=== PATIENT | male | born 1970 | race Caucasian/White ===

== ENCOUNTER 2022-02-08 03:00 | Observation (INO) | payer OTHER, SELFPAY ==
[2022-02-08] VITALS (17 sets, daily range): BP systolic 104–156; BP diastolic 65–90; PULSE 54–77; RESP 16–22; TEMP 36.4–36.8; O2SAT 94–100; BMI 33.0; BMI 33.1
--- NOTE | 2022-02-08 | EST_ITS ---
Patient Info Name: Jesse Lawrence Age: 52 years : 1970 Gender: Male Ht: 68 in Wt: 218 lbs BSA: 2.21 m2 HR: 50 bpm BP: 118 / 73 mmHg Heart Rhythm: Sinus Rhythm Exam Date: 02/08/2022 11:48 AM Exam Location: [facility] Patient Status: Inpatient Admit Date: 02/08/2022 Staff Ordering Physician: Ruddy White DO Attending Provider: oJsefina Bob DO Exercise Technologist: Karuna Winslow CT Exercise Physician: Ruddy White DO Exam Type: CA stress test treadmill w NM Study Info Indications R07.9 - Chest pain, unspecified A nuclear stress test was performed. Summary 1. 1. Negative Luis Eduardo exercise stress test for ischemic ST changes by ECG criteria. However, patient achieved only 72% MPHR for age group which reduces sensitivity of the test. Patient did receive beta [place] this morning of the test. 2. 2. Good functional capacity, achieving 11 METs of workload. 3. 3. Appropriate HR response to exercise. 4. 4. Appropriate HR recovery at 1 minute post exercise. 5. 5. Nuclear scan to follow and will be reported separately. Please correlate with it. 6. 6. Patient informed of the above results. Protocol: Luis Eduardo Stress ECG Details Stage: REST Duration (min): 1 min : 0 sec Speed (mph): 0.0 Grade (%): 0 HR (bpm): 52 SBP (mmHg): 118 DBP (mmHg): 73 METS: --- Stage: REST Duration (min): 6 min : 12 sec Speed (mph): 0.0 Grade (%): 0 HR (bpm): 59 SBP (mmHg): 118 DBP (mmHg): 73 METS: --- Stage: STAGE 1 Duration (min): 1 min : 0 sec Speed (mph): 1.7 Grade (%): 10 HR (bpm): 82 SBP (mmHg): 118 DBP (mmHg): 73 METS: --- Stage: STAGE 1 Duration (min): 2 min : 0 sec Speed (mph): 1.7 Grade (%): 10 HR (bpm): 83 SBP (mmHg): 118 DBP (mmHg): 73 METS: --- Stage: STAGE 1 Duration (min): 3 min : 0 sec Speed (mph): 1.7 Grade (%): 10 HR (bpm): 82 SBP (mmHg): 108 DBP (mmHg): 81 METS: --- Stage: STAGE 2 Duration (min): 1 min : 0 sec Speed (mph): 2.5 Grade (%): 12 HR (bpm): 91 SBP (mmHg): 108 DBP (mmHg): 81 METS: --- Stage: STAGE 2 Duration (min): 2 min : 0 sec Speed (mph): 2.5 Grade (%): 12 HR (bpm): 98 SBP (mmHg): 144 DBP (mmHg): 76 METS: --- Stage: STAGE 2 Duration (min): 3 min : 0 sec Speed (mph): 2.5 Grade (%): 12 HR (bpm): 97 SBP (mmHg): 144 DBP (mmHg): 76 METS: --- Stage: STAGE 3 Duration (min): 1 min : 0 sec Speed (mph): 3.4 Grade (%): 14 HR (bpm): 109 SBP (mmHg): 138 DBP (mmHg): 77 METS: --- Stage: STAGE 3 Duration (min): 2 min : 0 sec Speed (mph): 3.4 Grade (%): 14 HR (bpm): 116 SBP (mmHg): 138 DBP (mmHg): 77 METS: --- Stage: STAGE 3 Duration (min): 3 min : 0 sec Speed (mph): 3.4 Grade (%): 14 HR (bpm): 121 SBP (mmHg): 158 DBP (mmHg): 88 METS: --- Stage: STAGE 4
--- NOTE | 2022-02-08 | ECHO_ITS ---
Patient Info Name: Jesse Lawrence Age: 52 years : 1970 Gender: Male Ht: 68 in Wt: 218 lbs BSA: 2.21 m2 HR: 61 bpm BP: 127 / 79 mmHg Heart Rhythm: Sinus Arrhythmia Technical Quality: Fair Exam Date: 02/08/2022 1:18 PM Exam Location: [facility] Patient Status: Inpatient Admit Date: 02/08/2022 Staff Ordering Physician: Ruddy White DO Primary Therapist: Brooklyn De Anda RDCS Attending Provider: Josefina Bob DO Referring Physician: Christopher LORENZ; Exam Type: CA echo doppler color flow Study Info Indications - CP, CAD Complete two-dimensional, color flow and Doppler transthoracic echocardiogram is performed. Summary 1. Complete two-dimensional, color flow and Doppler transthoracic echocardiogram is performed. 2. Left ventricular chamber dimension is normal. 3. Left ventricular systolic function is normal, estimated at 60-65%. 4. The left ventricular diastolic function is grade II diastolic dysfunction. 5. E/e' 9 is minimally elevated. 6. No pulmonary hypertension, estimated pulmonary arterial systolic pressure is 29 mmHg. 7. There is trace pulmonic regurgitation. Left Ventricle E/e' 9 is minimally elevated. Left ventricular chamber dimension is normal. Left ventricular systolic function is normal, estimated at 60-65%. The left ventricular diastolic function is grade II diastolic dysfunction. Right Ventricle Right ventricular systolic function is normal and with normal TAPSE 2.1 cm. Right ventricular chamber dimension is normal. Left Atria Left atrial chamber dimension is normal. Right Atria Right atrial chamber dimension is normal. Aortic Valve The aortic valve is trileaflet. There is no aortic valve stenosis. There is no aortic valve regurgitation. Pulmonic Valve There is trace pulmonic regurgitation. Mitral Valve There is no mitral valve stenosis. There is no mitral valve regurgitation. Tricuspid Valve There is no tricuspid valve regurgitation. No pulmonary hypertension, estimated pulmonary arterial systolic pressure is 29 mmHg. Pericardium/Pleural There is no pericardial effusion. Inferior Vena Cava Normal inferior vena cava with >50% collapse upon inspiration consistent with normal right atrial pressure, 5 mmHg. Aorta The aortic root size at the sinus of Valsalva is normal. Left Ventricular Outflow Tract Name Value Normal LVOT 2D LVOT Diameter 2.0 cm LVOT Doppler LVOT Peak Gradient 6 mmHg LVOT Mean Gradient 3 mmHg LVOT VTI 26 cm LVOT VTI/AV VTI Ratio 0.9 LVOT Stroke Volume 85 ml LVOT CO 4.6 l/min LVOT CI 2.1 l/min/m2 Pulmonic Valve Name Value Normal RVOT Doppler RVOT Peak
--- NOTE | ~2022-02-08 | XR_ITS ---
EXAMINATION: XR chest 2V 02/08/2022 03:43 INDICATION: Chest pain PROCEDURE: 2 view chest COMPARISON: No prior studies for comparison. FINDINGS: The lungs are clear. The cardiomediastinal silhouette is within normal limits. There are no pleural effusions. There is no pneumothorax suspected. IMPRESSION: 1: NO ACUTE CARDIOPULMONARY DISEASE. Reviewed, dictated and finalized at location A.
--- NOTE | ~2022-02-08 | NM_ITS ---
EXAMINATION: NM stress w perf spect multi DATE: 02/08/2022 13:17 INDICATION: Chest pain TECHNIQUE: Rest images were obtained following intravenous administration of 9.6 mCi Tc99m tetrofosmi n ([email or web address]). The patient performed an exercise activity. At peak exercise, 31.7 mCi Tc99m tetrofosmin ([employer]) was administered intravenously, and stress images were obtained. Data was reconstructed in to short axis and horizontal and vertical long axis SPECT images. Gated SPECT images were also obtain ed. COMPARISON: None. FINDINGS: There is normal left ventricular perfusion without definite evidence of reversible or fixed perfusion abnormality to suggest ischemia or infarction. There is normal left ventricular chamber size, wall motion and ejection fraction. Left ventricular ejection fraction measures 65%. IMPRESSION: 1. Normal myocardial perfusion at rest and during stress. 2. Left ventricular ejection fraction measuring 65%. Reviewed, dictated and finalized at location B.
--- NOTE | 2022-02-08 03:03 | ECG_ITS ---
Measurements Intervals [place] Rate: 63 P: 21 [place]: 183 QRS: -10 QRSD: 86 T: 10 QT: 392 QTc: 404 Interpretive Statements SINUS RHYTHM BASELINE ARTIFACT- I, II, AVR, AVL, AVF, V1 NORMAL ECG Electronically Signed On 02-08-2022 6:38:11 CDT by Ruddy White D.O.
--- NOTE | 2022-02-08 03:18 | ED.CHESTPAIN ---
HPI - Chest Pain General Chief Complaint: Chest Pain Stated Complaint: CHEST PAIN Time Seen by Provider: 02/08/22 03:11 Source: patient History of Present Illness HPI narrative: Patient presents with chest pain. Reports his chest pain has been present for approximately 1 hour prior to ER arrival. Ports history of coronary artery disease multiple stents his episodes feel like his prior MIs. 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 Denies any lightheadedness or dizziness with some mild shortness of breath denies any recent fevers, cough, congestion denies any urinary symptoms. Related Data Home Medications Medication Instructions Recorded Confirmed aspirin 81 mg tablet 81 mg PO DAILY 02/08/22 atorvastatin 40 mg tablet tablet 02/08/22 clopidogrel 75 mg tablet tablet 02/08/22 02/08/22 colchicine 0.6 mg capsule mg 02/08/22 (Mitigare) lisinopril 10 mg tablet 10 mg PO DAILY 02/08/22 metoprolol tartrate 25 mg tablet 25 mg PO BID 02/08/22 Allergies Allergy/AdvReac Type Severity Reaction Status Date / Time No Known Allergies Allergy Verified 02/08/22 03:19 Review of Systems Review of Systems: CONSTITUTIONAL: Denies fever, chills, or sweats. EYES: Denies visual changes, redness, or discharge. ENT: Denies rhinorrhea, congestion, sore throat, or otalgia. CARDIOVASCULAR: Denies palpitations, or edema. RESPIRATORY: Denies cough GASTROINTESTINAL: Denies abdominal pain, nausea, vomiting, or diarrhea. GENITOURINARY: Denies dysuria or hematuria. SKIN: Denies rash or itching. MUSCULOSKELETAL: Denies back pain, joint pain, or myalgia. NEUROLOGIC: Denies headache, numbness, dizziness, or weakness. PSYCHIATRIC: Denies anxiety or depression. All systems reviewed & are unremarkable except as noted in HPI and below Exam Narrative: GENERAL: Well-appearing, well-nourished, and in no acute distress. HEAD: Normocephalic, atraumatic. EYES: PERRLA and EOMI. ENT: Nares clear, no rhinorrhea or epistaxis. Mucous membranes moist. NECK: Supple. No masses. No JVD CHEST: Clear to auscultation. No respiratory distress. No wheezes rales or rhonchi HEART: Regular rate and rhythm. No murmur heard. Normal peripheral pulses. ABDOMEN: Soft, nontender, nondistended EXTREMITIES: Normal range of motion. No edema. SKIN: Warm, dry, no rash. NEURO: No focal deficits. Alert and oriented x3. PSYCH: Normal mood and affect. Course Reevaluation(s) Reevaluation #1: Patient reports nitro initially helped but his pain has returned. Given his history of multiple stents this episodes feels like his prior MIs patient benefit from further inpatient evaluation. Patient is comfortable inpatient plan. Date: 02/08/22 Time: 05:07 Consultations Consultation #1: Case discussed with hospitalist team who will admit for further management. Cardiology consult placed Date: 02/08/22 Time: 05:42 Vital Signs Vital signs: Vital Signs Temperature 36.7 C 02/08/22 03:06 Pulse Rate 65 02/08/22 03:06 Respiratory Rate 20 02/08/22 03:06 Blood Pressure 156/90 H 02/08/22 03:06 Pulse Oximetry 97 02/08/22 03:06 Oxygen Delivery Room Air 02/08/22 03:06 Temperature 36.7 C 02/08/22 03:06 Pulse Rate 60 02/08/22 06:18 Respiratory Rate 17 02/08/22 06:18 Blood Pressure 104/74 02/08/22 06:18 Pulse Oximetry 96 02/08/22 06:18 Oxygen Delivery Room Air 02/08/22 03:13 MDM - Chest Pain MDM Narrative Medical decision making narrative: Patient presents with chest pressure feels like his prior MIs. Patient overall looks well vital signs are reassuring labs and imaging obtained labs were reassuring initial troponin was negative EKG was nonischemic. Patient was treated with nitro with improvement in his pain. Given similarity to his prior MIs patient will be admitted for further management and cardiology evaluation. Patient is comfortab
[2022-02-08] MEDS: ASPIRIN 81 MG CHEWABLE TABLET 324 MG PO (03:24)
[2022-02-08] MEDS: NITROGLYCERIN OINTMENT 1 INCH DOSE TRANSDERM (03:25)
[2022-02-08 03:29] LABS: Basophils Absolute Auto 0.1 K/mm3 (0.0-0.1); Basophils Percent Auto 1.1 % (0.2-1.2); Eosinophils Absolute Auto 0.5 K/mm3 (0-0.3); Eosinophils Percent Auto 5.5 % (0-4.4); Hematocrit 44.9 % (42.0-52.0); Hemoglobin 15.3 g/dL (14.0-18.0); Immature Granulocyte Absolute 0.04 K/mm3 (0.00-0.031); Immature Granulocyte Percent A 0.5 % (0-0.5); Lymphocytes Absolute Auto 2.66 K/mm3 (0.9-3.2); Lymphocytes Percent Auto 30.3 % (18.3-44.2); Mean Corpuscular HGB Conc 34.1 g/dl (32-36); Mean Corpuscular Hemoglobin 30.1 pg (26-34); Mean Corpuscular Volume 88.4 fl (80-100); Mean Platelet Volume 10.3 fl (7.4-10.4); Monocytes Absolute Auto 0.9 K/mm3 (0.1-0.6); Monocytes Percent Auto 10.7 % (2.6-8.5); Neutrophils Absolute Auto 4.6 K/mm3 (1.3-6.7); Neutrophils Percent Auto 51.9 % (45.5-73.1); Platelet Count Result 246 k/mm3 (150-375); Red Blood Count 5.08 M/mm3 (4.6-6.20); Red Cell Distribution Width 13.2 % (11.5-14.5); White Blood Count 8.8 K/mm3 (4.5-10.0)
[2022-02-08 03:39] LABS: Alanine Aminotransferase 32 U/L (6-50); Albumin Level 4.4 g/dL (3.5-5.1); Alkaline Phosphatase 85 U/L (38-126); Anion Gap 7 mmol/L (8-16); Aspartate Amino Transferase 40 U/L (17-59); Bilirubin,Total 0.5 mg/dL (0.2-1.3); Blood Urea Nitrogen 12 mg/dL (9-20); Calcium 8.7 mg/dL (8.4-10.2); Carbon Dioxide 24 mmol/L (22-30); Chloride 106 mmol/L (98-107); Estimated CRCL calculation 71 ml/min; Estimated Glomerular Filt Rate > 60; Glucose 113 mg/dL (65-110); Lipase 120 U/L (23-300); Potassium 3.7 mmol/L (3.4-5.0); Sodium 137 mmol/L (137-145)
[2022-02-08 03:41] LABS: Partial Thromboplastin Time 27.9 SECONDS (22.3-36.8)
[2022-02-08 03:51] LABS: Troponin I < 0.012 ng/mL (0.000-0.034)
[2022-02-08] MEDS: NITROGLYCERIN SL 0.4 MG TABLET SUBLINGUAL (05:14)
--- NOTE | 2022-02-08 05:14 | PC.NURSE ---
Nitro patch removed from right upper chest at this time. 1st dose SL nitroglycerin given, pt rates chest pressure 5/10.
--- NOTE | 2022-02-08 05:20 | PC.NURSE ---
2nd dose SL nitro given at this time. Pt rates chest pressure 4/10. BP 117/75.
--- NOTE | 2022-02-08 05:26 | PC.NURSE ---
3rd dose SL nitro given at this time. Pt rates chest pressure 2/10. BP 111/72.
--- NOTE | 2022-02-08 05:34 | ECG_ITS ---
Measurements Intervals [place] Rate: 59 P: 12 [place]: 178 QRS: -5 QRSD: 98 T: 13 QT: 416 QTc: 413 Interpretive Statements SINUS BRADYCARDIA WITH SINUS ARRHYTHMIA NONSPECIFIC T-WAVE ABNORMALITY- INFERIOR LEADS BASELINE ARTIFACT- I, III, AVL BORDERLINE ECG Electronically Signed On 02-08-2022 6:38:33 CDT by Ruddy White D.O.
[2022-02-08 06:51] LABS: Troponin I < 0.012 ng/mL (0.000-0.034)
--- NOTE | 2022-02-08 07:19 | ADMGEN ---
This patient, Jesse Lawrence, was admitted to IMU Room 202-01 on 02/08/22 at 0645. Patient/family oriented to hospital policies and general routines including ID bracelet, bed and alarms, visiting hours, pain management, procedures, bathroom and other care routines, personal items, smoking policy, room service/diet, and visiting hours. Information on how to activate the Rapid Response Team has been discussed. Patient/Family are encouraged to report perceived risks to care and to ask questions if they do not understand what they are told or what they should do.
--- NOTE | 2022-02-08 08:36 | PM.IMHP ---
H&P: HPI History of Present Illness Date/Time: 02/08/22 08:36 52M with a past medical history of CAD s/p stent x2 on clopidogrel, hypertension, HLD who presented to the ED with chest pain. Patient says the chest pain started around 0100 while he was driving. Describes it as chest pressure ebony and tightness at the center of the chest that radiates outward with associated tightness in the left neck. Patient says he went to the emergency room for a similar pain three years ago and had his first stent placed. Patient also reports feeling palpitations with associated feeling short of breath. Denies nausea, vomiting, headache, vision changes, cough, sore throat, dysuria, hesitancy, lightheadedness. Has some myalgias from working out. Says he gets leg swelling during long drives, but that it resolves after sleeping overnight. More recent stent was placed about 2 years ago. Job Foreman is Kwasi Sage MD in [place], [place] ([facility]). 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 Says his son who is only 20, has significantly elevated blood pressure. Says father from [place] at 58 and all of his uncles have from cardiac issues. In ED, troponin negative, CXR negative. Labs are within range. Cardiology consulted. Chief Complaint: Chest Pain PMFSH Past Medical History Medical History (Updated 02/08/22 @ 12:37 by Connie Taylor MD) CAD (coronary artery disease) Dyslipidemia Hypertension Family History Family History Father Acute myocardial infarction Congestive heart failure Hypertension Heart disease Sibling Acute myocardial infarction Asthma Crohn's disease Mother Diabetes mellitus Hypertension Heart disease Social History Social History Smoking status: Never smoker Second hand tobacco smoke exposure: Yes Alcohol intake: never Substance use: never Substance use type: does not use Occupation/Education: occupation 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 Spiritual care concerns: No Meds Home Medications and Allergies Home Medications Medication Instructions Recorded Confirmed Type aspirin 81 mg tablet 162 mg PO HS 02/08/22 02/08/22 History atorvastatin 40 mg tablet 40 tablet PO HS 02/08/22 02/08/22 History clopidogrel 75 mg tablet 75 tablet PO DAILY 02/08/22 02/08/22 History lisinopril 10 mg tablet 10 mg PO DAILY 02/08/22 02/08/22 History metoprolol tartrate 25 mg tablet 12.5 mg PO Q12H 02/08/22 02/08/22 History Allergies Allergy/AdvReac Type Severity Reaction Status Date / Time No Known Allergies Allergy Verified 02/08/22 03:19 Vital Signs Vital Signs - 24 hr 02/08/22 03:06 02/08/22 03:13 02/08/22 03:46 Temperature 98.0 F Pulse Rate 65 58 L Respiratory Rate 20 21 H Blood Pressure 156/90 H 138/84 Pulse Oximetry 97 96 Oxygen Delivery Room Air Room Air 02/08/22 04:38 02/08/22 05:13 02/08/22 05:19 Temperature Pulse Rate 65 59 L 70 Respiratory Rate 22 H 19 19 Blood Pressure 124/81 137/79 117/75 Pulse Oximetry 96 95 96 Oxygen Delivery 02/08/22 05:25 02/08/22 05:31 02/08/22 06:18 Temperature Pulse Rate 71 66 60 Respiratory Rate 22 H 19 17 Blood Pressure 111/72 114/65 104/74 Pulse Oximetry 94 96 Oxygen Delivery 02/08/22 06:48 02/08/22 08:00 Temperature 97.5 F L 97.6 F Pulse Rate 61 58 L Respiratory Rate 20 19 Blood Pressure 130/80 127/79 Pulse Oximetry 100 98 Oxygen Delivery Exam Narrative: GENERAL: NAD, cooperative HEENT: Normocephalic, atraumatic, anicteric, nares clear, oropharynx moist and clear, dentition normal NECK: No bruits bilaterally, no JVD, no thyromegaly, no lymphadenopathy CV: Normal S1, S2, RRR, No MRG RESP: CTAB, Normal work of
--- NOTE | 2022-02-08 08:37 | PM.CNCAR ---
Assessment and Plan Assessment and plan (1) Chest pain: Qualifiers: Chest pain type: unspecified Qualified Code(s): R07.9 - Chest pain, unspecified Code(s): R07.9 - Chest pain, unspecified Status: Acute Assessment and Plan: AR r/o by serial troponin and EKG. He has a history of CAD and AR and had a stent to LAD in 2008 in [place], then a 2nd stent in [place] on 2019 in [place]. Obtain treadmill nuclear stress test and echo. (2) CAD (coronary artery disease): Code(s): I25.10 - Atherosclerotic heart disease of [place] coronary artery without angina pectoris Status: Acute (3) Hypertension: Code(s): I10 - Essential (primary) hypertension Status: Acute Assessment and Plan: Stable. Advise to maintain a low sodium diet. (4) Dyslipidemia: Code(s): E78.5 - Hyperlipidemia, unspecified Status: Acute Assessment and Plan: On Atorvastatin. History of Present Illness History of Present Illness Consult date/time: 02/08/22 08:37 52 yr old man presents to ER with cp. He has a history of CAD and AR and had a stent to LAD in 2008 in [place], then a 2nd stent in [place] on 2019, dyslipidemia, hypertension, family history of CAD. 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 He came to our ER and got admitted. He was given 3 NTG and they did relieve some of his pain. He is able to walk 20 minutes at 2.5 mph on a program on treadmill without chest pain. Denies orthopnea, PND, edema, dizziness, palpitations. Consult reason: chest pain Reason For Visit: CHEST PAIN Review of Systems Review of Systems: All systems reviewed & are unremarkable except as noted in HPI and below Constitutional: Constitutional: Reports as per HPI, Denies chills and Denies fever(s) Cardiovascular: Cardiovascular: Reports as per HPI, Reports chest pain, Denies irregular heart rhythm, Denies leg edema and Denies lightheadedness Respiratory: Respiratory: Reports as per HPI and Reports dyspnea Gastrointestinal: Gastrointestinal: Reports as per HPI and Denies abdominal pain Genitourinary: Genitourinary: Reports as per HPI and Denies dysuria Musculoskeletal: Musculoskeletal: Reports as per HPI Neurologic: Reports as per HPI, Denies dizziness and Denies syncope [facility] Family History Family History (Updated 02/08/22 @ 07:38 by Aure Martinez, RN) Father Acute myocardial infarction Congestive heart failure Hypertension Sibling Acute myocardial infarction Asthma Crohn's disease Mother Diabetes mellitus Hypertension Social History Social History Smoking status: Never smoker Second hand tobacco smoke exposure: Yes Alcohol intake: never Substance use: never Substance use type: does not use Spiritual care concerns: No Meds Home Medications and Allergies Home Medications Medication Instructions Recorded Confirmed Type aspirin 81 mg tablet 162 mg PO HS 02/08/22 02/08/22 History atorvastatin 40 mg tablet 40 tablet PO HS 02/08/22 02/08/22 History clopidogrel 75 mg tablet 75 tablet PO DAILY 02/08/22 02/08/22 History lisinopril 10 mg tablet 10 mg PO DAILY 02/08/22 02/08/22 History metoprolol tartrate 25 mg tablet 12.5 mg PO Q12H 02/08/22 02/08/22 History Allergies Allergy/AdvReac Type Severity Reaction Status Date / Time No Known Allergies Allergy Verified 02/08/22 03:19 Vital Signs Vital Signs - 24 hr 02/08/22 03:06 02/08/22 03:13 02/08/22 03:46 Temperature 98.0 F Pulse Rate 65 58 L Respiratory Rate 20 21 H Blood Pressure 156/90 H 138/84 Pulse Oximetry 97 96 Oxygen Delivery Room Air Room Air 02/08/22 04:38 02/08/22 05:13 02/08/22 05:19 Temperature Pulse Ra
[2022-02-08 09:24] LABS: Troponin I < 0.012 ng/mL (0.000-0.034)
[2022-02-08] MEDS: CLOPIDOGREL BISULFATE 75 MG TABLET PO (09:41)
[2022-02-08] MEDS: lisinopriL 10 MG TABLET PO (09:41)
[2022-02-08] MEDS: METOPROLOL TARTRATE 12.5 MG TABLET PO (09:41)
--- NOTE | 2022-02-08 11:15 | PC.NURSE ---
Pt to cardiology (nuclear medicine) for stress test via wheelchair
--- NOTE | 2022-02-08 12:49 | PC.NURSE ---
Pt returned from stress test via wheelchair
--- NOTE | 2022-02-08 16:14 | PM.DS ---
DS: Admitting Diagnosis Discharge Date 02/08/25 Admitting Diagnosis Chest Pain DS: Discharge Diagnosis Discharge Diagnosis (1) Chest pain: Qualifiers: Chest pain type: unspecified Qualified Code(s): R07.9 - Chest pain, unspecified Code(s): R07.9 - Chest pain, unspecified Status: Acute Assessment and Plan: Troponin negative but pain is similar to previous CP requiring stenting. Area he pointed to was somewhat epigastric. Lipase normal. No known hx of reflux or esophageal spasm. Cardiology consulted in ED. Stress test showed no ischemia. -Appreciate Cardiology Recommendations -Will monitor on tele -Continue statin, BB, arb, aspirin -Follow up in Cardiology clinic in 1-2 weeks (2) Dyslipidemia: Code(s): E78.5 - Hyperlipidemia, unspecified Status: Acute Assessment and Plan: Continue statin. (3) Hypertension: Code(s): I10 - Essential (primary) hypertension Status: Acute Assessment and Plan: On metoprolol and lisinopril at home. Continue home medicatons. Will monitor. (4) CAD (coronary artery disease): Code(s): I25.10 - Atherosclerotic heart disease of [place] coronary artery without angina pectoris Status: Acute Assessment and Plan: Hx of CAD with stent x 2 in the past. On arb, bb, statin, asa and plavix. Continue for now. (5) Dyspnea: Code(s): R06.00 - Dyspnea, unspecified Status: Acute Assessment and Plan: Reporting some palpitations. Saturating well on oxygen and has not had this while hospitalized. Will monitor. DS: Summary Hospital Course Reason for hospitalization: Chest Pain Hospital Course: 52M with a past medical history of CAD s/p stent x2 on clopidogrel, hypertension, HLD who presented to the ED with chest pain. Due to significant cardiac history patient was admitted and Cardiology was consulted. Troponin remained negative. Patient had pharmacologic stress test, which showed no ischemia. Patient advised to follow up with Cardiology outpatient in 1-2 weeks. Patient discharged to home. Time Spent with Patient Time attestation: Total time spent providing and/or coordinating discharge services: Exam Narrative: GENERAL: NAD, cooperative HEENT: Normocephalic, atraumatic, anicteric, nares clear, oropharynx moist and clear, dentition normal NECK: No bruits bilaterally, no JVD, no thyromegaly, no lymphadenopathy CV: Normal S1, S2, RRR, No MRG RESP: CTAB, Normal work of breathing. Abdomen: Soft, non-tender, non-distended, +BS EXTREMITIES: Warm and well perfused, no clubbing, cyanosis, or edema. SKIN: warm, dry and intact. NEURO:CN 2-12 grossly intact. DS: Data Data Completed and Pending Labs on day of discharge: Labs from last 24 hours 02/08/22 02/08/22 02/08/22 08:49 06:11 03:23 WBC RBC Hgb Hct MCV MCH MCHC RDW Plt Count MPV Immature Gran % (Auto) Neut % (Auto) Lymph % (Auto) [place] % (Auto) Eos % (Auto) Baso % (Auto) Lymph # (Auto) [place] # (Auto) Eos # (Auto) Baso # (Auto) Abs Immat Gran (auto) Absolute Neuts (auto) Absolute Nucleated RBC Nucleated RBC % PT INR APTT Sodium 137 Potassium 3.7 Chloride 106 Carbon Dioxide 24 Anion Gap 7 L BUN 12 Creatinine 1.20 Estim Creat Clear Calc 71 Estimated GFR > 60 Glucose 113 H Calcium 8.7 Total Bilirubin 0.5 AST 40 ALT 32 Alkaline Phosphatase 85 Troponin I < 0.012 < 0.012 < 0.012 Total Protein 7.0 Albumin 4.4 Lipase 120 02/08/22 02/08/22 03:23 03:23 WBC 8.8 RBC 5.08 Hgb 15.3 Hct 44.9 MCV 88.4 MCH 30.1 MCHC 34.1 RDW 13.2 Plt Count 246 MPV 10.3 Immature Gran % (Auto) 0.5 Neut % (Auto) 51.9 Lymph % (Auto) 30.3 [place] % (Auto) 10.7 H Eos % (Auto) 5.5 H Baso % (Auto) 1.1 Lymph # (Auto) 2.66 [place] # (Auto) 0.
== END 2022-02-08 17:08 | disposition home or self-care (01) ==
LOC: ANHED 05:08 → ANHIMU 08:17
PROVIDERS: Admitting Provider Internal Medicine; Emergency Provider Emergency Medicine; Visit Provider Family Medicine
DX: R07.9 Chest pain, unspecified (principal); I25.10 Atherosclerotic heart disease of native coronary artery without angina pectoris; Z79.82 Long term (current) use of aspirin; I10 Essential (primary) hypertension; E78.5 Hyperlipidemia, unspecified; R06.00 Dyspnea, unspecified
CPT/HCPCS: 36415; 71046; 78452; 80053; 83690; 84484; 85025; 85610; 85730; 93005; 93017; 93306; 99285; A9270; A9502; G0378